=== PATIENT | female | born 1995 | race Caucasian/White ===

== ENCOUNTER 2022-06-12 11:49 | Emergency (ER) | payer OTHER, SELFPAY ==
[2022-06-12] MEDS ORDERED: HYDROcodone/Acetaminophen 5/325 mg Tablet ONE (12:17)
[2022-06-12] MEDS ORDERED: Ibuprofen 200 MG TAB ONE (12:17)
== END 2022-06-12 12:45 | disposition home or self-care (01) ==
LOC: CSHERS 11:49
DX: S54.01XA Injury of ulnar nerve at forearm level, right arm, initial encounter (principal); S50.01XA Contusion of right elbow, initial encounter; W01.0XXA Fall on same level from slipping, tripping and stumbling without subsequent striking against object, initial encounter